=== PATIENT | male | born 1950 | race Caucasian/White ===

== ENCOUNTER 2017-08-25 11:43 | Observation (INO) | payer OTHER ==
[2017-08-25 12:17] LABS: #Eosinphils 0.2 thou/uL (0.0-0.7); #Lymphocytes 2.4 thou/uL (1.20-3.40); #Monocytes 0.5 thou/uL (0.11-0.59); #Neutrophils 3.1 thou/uL (1.40-6.50); %Basophils 0.6 % (0.0-1.0); %Eosinophils 3.2 % (0.0-10.0); %Lymphocytes 38.8 % (21.0-51.0); %Monocytes 7.4 % (0.0-10.0); Hematocrit 41.5 % (42.0-52.0); Mean Platelet Volume 7.7 fL (7.4-10.4); Red Blood Cell (RBC) Count 4.71 mill/uL (4.70-6.10); White Blood Cell (WBC) Count 6.2 thou/uL (4.8-10.8)
[2017-08-25 12:29] LABS: Fibrinogen 274 mg/dL (253-463)
[2017-08-25 12:30] LABS: PTT 40.4 SEC (22.9-36.1); Prothrombin Time 26.3 SEC (12.0-14.7)
[2017-08-25 12:37] LABS: ALT (SGPT) 23 U/L (8-55); AST (SGOT) 19 U/L (5-34); Alkaline Phosphatase 60 U/L (40-150); Anion Gap 14 mmol/L (10-20); BUN (Urea Nitrogen) 12 mg/dL (8.4-25.7); Bilirubin, Total 0.9 mg/dL (0.2-1.2); Calc. Creatinine Clearance 0 mL/min (70-130); Calcium 9.1 mg/dL (7.8-10.44); Carbon Dioxide 23 mmol/L (23-31); Chloride 108 mmol/L (98-107); Estimated GFR-MDRD 79; Globulin 2.9 g/dL (2.4-3.5)
[2017-08-25] MEDS ORDERED: Bisacodyl 5 MG TAB PO PRN (15:12)
[2017-08-25] MEDS ORDERED: Acetaminophen 325 MG TAB PO PRN (15:12)
--- NOTE | 2017-08-25 15:58 | PDOC.EVN ---
Event Note - Event Note Event Note: Discussed with [facility]. No need to reverse warfarin , per discussion.
[2017-08-25] MEDS ORDERED: Sodium Chloride 0.9% 1,000 ML IV SCH (16:00)
--- NOTE | 2017-08-25 16:01 | HP ---
PRIMARY CARE PHYSICIAN: Fabrice Miller D.O. CHIEF COMPLAINT: Snake bite. HISTORY OF PRESENT ILLNESS: Mr. Jackson is a pleasant 67-year-old gentleman, who was seen at [facility] on 08/25/2017. He was walking outside barefoot at 10:40 a.m. today, whe n he was bit by a copperhead snake on his right foot. He reports identifying the snake. He reports pain to the right foot. He also reports right foot swelling. He denies any chest pain or shortnes s of breath. He denies any nausea or vomiting. He denies any fevers or chills. He reports that his pain is currently 4/10, dull, radiating up his right lower extremity, no aggrava ting or relieving factors. REVIEW OF SYSTEMS: The following complete review of systems was negative, unless otherwise mentione d in the HPI or below: Constitutional: Weight loss or gain, sense of well-being, ability to conduct usual activities, exer cise tolerance. Skin/Breast: Rash, itching, changes in hair growth or loss, nail changes, breast lumps, tenderness, swelling, nipple discharge. Eyes: Vision, double vision, tearing, blind spots, pain. ENT/Mouth: Headaches (location, time of onset, duration, precipitating factors), vertigo, lighthead edness, injury. Vision, double vision, tearing, blind spots, pain, nose bleeding, colds, obstruction , discharge, dental difficulties, gingival bleeding, dentures, neck stiffness, pain, tenderness, mas ses in thyroid or other areas. Cardiovascular: Precordial pain, substernal distress, palpitations, syncope, dyspnea on exertion, o rthopnea, nocturnal paroxysmal dyspnea, edema, cyanosis, hypertension, heart murmurs, varicosities, phlebitis, claudication. Respiratory: Pain, shortness of breath, wheezing, stridor, cough, hemoptysis, fever or night sweats . Gastrointestinal: Poor appetite, dysphagia, indigestion, abdominal pain, heartburn, eructation, islvia sea, vomiting, hematemesis, jaundice, constipation, or diarrhea, abnormal stools (marilia-colored, herman y, bloody, greasy, foul smelling), flatulence, hemorrhoids, recent changes in bowel habits. Genitourinary: Urgency, frequency, dysuria, nocturia, hematuria, polyuria, oliguria, unusual (or ch cata in) color of urine, stones, hesitancy, change in size of stream, dribbling, acute retention or incontinence, libido, potency. Musculoskeletal: Pain, swelling, redness or heat of muscles or joints, limitation, of motion, muscu lar weakness, atrophy, cramps. Neurologic/Psychiatric: Convulsions, paralyses, tremor, incoordination, paresthesias, difficulties with memory of speech, sensory or motor disturbances, or muscular coordination (ataxia, tremor), emo tional problems, anxiety, depression, previous psychiatric care, unusual perceptions, hallucinations . Allergy/Immunologic: Skin rash, anemia, bleeding tendency, polydipsia, polyuria, intolerance to hea t or cold. PAST MEDICAL HISTORY: Significant for dyslipidemia, prostate cancer, status post radiation therapy, depression, shingles, superior mesenteric vein thrombosis, and colonic polyp. PAST SURGICAL HISTORY: Significant for cholecystectomy, tonsillectomy, and laparoscopic right hemic olectomy. SOCIAL HISTORY: The patient denies tobacco use, alcohol use or recreational drug use. CODE STATUS: I discussed Mr. Jackson's code status. He is FULL CODE. ALLERGIES: EPINEPHRINE. CURRENT MEDICATIONS: Include multivitamins 1 tablet daily, Crestor 20 mg daily, venlafaxine 75 mg d y, bicalutamide 50 mg daily, warfarin 10 mg daily except on Wednesdays and Saturdays, when he miky es 5 mg, tamsulosin 0.4 mg daily, calcium 600/vitamin D 1 tablet daily, vitamin C 500 mg daily. PHYSICAL EXAMINATION: GENERAL: Mr. Rodrigues is awake and alert, not in acute distress. VITAL SIGNS: Blood pressure is 149/79, pulse is 68. He is breathing at rate of 15 and saturating 9 9% on room air. He is afebrile. EYES: No scleral icterus. No conjunctival pallor. ENT: Moist mucosal membranes, no oropharyngeal erythema or exudates. NECK: Supple, nontender, normal range of movement. Trachea is midline. RESPIRATORY: Accessory muscles of breathing are not active. Chest wall movements are symmetric vik aterally. LUNGS: Clear to auscultation without wheeze, rhonchi or crepitations. CARDIOVASCULAR: S1 and S2 are heard, regular. LUNGS: Peripheral pulses palpable. No carotid bruit, no pericardial rub. ABDOMEN: Soft, nontender, bowel sounds heard, no hepatomegaly, no splenomegaly. NEUROLOGIC: Cranial nerves II-XII are intact. Deep tendon reflexes are 2+. MUSCULOSKELETAL: Power is 5/5 in all 4 extremities. Right lower extremity has two firing goldstein ove r the medial aspect of the foot, with swelling extending to mid leg. He also has increased warmth o addy the area of swelling, when compared to the left foot. Pulses are palpable but vary intensity th an on the left foot. He also has mild tenderness over the right foot, ankle and lower leg. His swe lling has been marked and appears to have progressed since presentation to the emergency room. SKIN: Skin changes in the right lower extremity as described above. Otherwise, no rashes or subcut aneous nodules. PSYCHIATRIC: Normal mood, normal affect, the patient is oriented to time, place and person. LYMPHATIC: No cervical lymphadenopathy. LABS AND INVESTIGATIONS: Mr. Tinoco labs and investigations were reviewed. He has normal white count, normocytic anemia with hemoglobin 13.9, normal platelet count, elevated PT of 26.3, elevated INR of 2.3, elevated PTT of 40.4, normal fibrinogen and normal fibrin degradation products, unremar kable comprehensive metabolic profile. CK has not been checked it. ASSESSMENT AND PLAN: Mr. Jackson is a pleasant 67-year-old gentleman, who was seen at [facility] on 08/25/2017. His problem list includes: 1. Snake bite: He had total at envenomation. Going by progression of leg swelling, he had moderat e envenomation. He will be started on antivenom. I discussed the side effects of antivenom, includ ing anaphylactic shock and even . The patient and family are agreeable for antivenom. He will be admitted to the hospital and have his labs rechecked. Orthopedic Service will also be consulted for evaluation for compartment syndrome. 2. Coagulopathy: His INR abnormalities are most likely secondary to warfarin use. We will hold wa rfarin for now. 3. Dyslipidemia: Continue statin. 4. History of prostate cancer. Continue bicalutamide. Many thanks for allowing me to participate in your patient's care. Please feel free to contact me w ith any questions or concerns. LEVEL OF RISK: Moderate. LEVEL OF COMPLEXITY: Moderate.
[2017-08-25] MEDS ORDERED: Ondansetron HCl/PF 4 MG/2 ML Vial IVP PRN (16:30)
[2017-08-25] MEDS ORDERED: Acetaminophen 500 MG TAB PO PRN (16:30)
[2017-08-25] MEDS ORDERED: HOLD ALL ANTI-COAGULANTS/ANTI-PLATELETS/NSAIDS PO SCH (16:30)
[2017-08-25] MEDS ORDERED: Crotalidae Polyvlnt Antivenin 4 GM in Sodium Chloride 0.9% 250 ML 250 ML IVPB SCH ×2 (16:30→23:59)
[2017-08-25] MEDS ORDERED: TETANUS AND DIPHTHERIA TOX/PF 0.5 ML DISP.SYRIN IM ONE (16:30)
[2017-08-25] MEDS ORDERED: diphenhydrAMINE HCl 50 MG/ML 1 ML VIAL IVP PRN (16:30)
[2017-08-25 16:46] VITALS: BMI 30.1
[2017-08-25] MEDS ORDERED: FLU VACC TS2017-18 (>65YR) 0.5 ML SYRINGE IM ONE (17:30)
[2017-08-25 20:00] LABS: PTT 39.5 SEC (22.9-36.1); Prothrombin Time 28.6 SEC (12.0-14.7)
[2017-08-25] MEDS ORDERED: Tamsulosin HCl 0.4 MG CAP PO SCH (21:00)
[2017-08-25] MEDS ORDERED: Multivit, Therapeutic 1 TAB PO SCH (21:00)
[2017-08-25] MEDS ORDERED: Calcium Carbonate 600 MG TAB PO SCH (21:00)
[2017-08-25] MEDS ORDERED: Venlafaxine HCl XR 75 MG CAP PO SCH (21:00)
[2017-08-25] MEDS ORDERED: Bicalutamide 50 MG TAB PO SCH (21:00)
[2017-08-25] MEDS ORDERED: Ascorbic Acid 500 mg Chewable Tablet PO SCH (21:00)
[2017-08-26] MEDS: Crotalidae Polyvlnt Antivenin 2 GM in Sodium Chloride 0.9% 250 ML 250 ML IVPB SCH ×3 (00:04→12:45)
[2017-08-26 04:35] LABS: #Eosinphils 0.2 thou/uL (0.0-0.7); #Monocytes 0.6 thou/uL (0.11-0.59); #Neutrophils 5.4 thou/uL (1.40-6.50); %Basophils 0.2 % (0.0-1.0); %Eosinophils 2.5 % (0.0-10.0); %Lymphocytes 24.4 % (21.0-51.0); %Monocytes 7.3 % (0.0-10.0); Hematocrit 39.3 % (42.0-52.0); Mean Platelet Volume 8.2 fL (7.4-10.4); Red Blood Cell (RBC) Count 4.42 mill/uL (4.70-6.10); White Blood Cell (WBC) Count 8.3 thou/uL (4.8-10.8)
[2017-08-26 04:38] LABS: Anion Gap 11 mmol/L (10-20); BUN (Urea Nitrogen) 13 mg/dL (8.4-25.7); CK (CPK) 211 U/L (30-200); Calc. Creatinine Clearance 95 mL/min (70-130); Calcium 8.9 mg/dL (7.8-10.44); Carbon Dioxide 24 mmol/L (23-31); Chloride 107 mmol/L (98-107); Estimated GFR-MDRD 78
[2017-08-26 09:37] VITALS: BP 122/71; TEMP 98.3
--- NOTE | 2017-08-26 14:06 | CON ---
ORTHOPEDIC CONSULTATION DATE OF CONSULTATION: 08/26/2017 REQUESTING PHYSICIAN: Dr. Trevor Coronel. CONSULTING PHYSICIAN: Dr. Ronnell Rosales. REASON FOR CONSULTATION: Right foot crotalid envenomation. BRIEF CLINICAL HISTORY OF PRESENT ILLNESS: [place] is a 67-year-old white male who was admitted to edicine Service yesterday after he was bitten by a copperhead snake at home. He was walking outside without shoes on about 10:00 a.m. and stepped on the snake and he identified it. He was brought to the [facility] and he was started on the CroFab protocol. Since yesterday e vening, his pain has been getting better. He has not received any analgesics for this. Overall, he feels fine now and his swelling is noted, but other than that he admits to very little pain. PAST MEDICAL HISTORY: Significant for hyperlipidemia, depression, superior mesenteric vein thrombos is, shingles. PAST SURGICAL HISTORY: Cholecystectomy, tonsillectomy, hemicolectomy. PHYSICAL EXAMINATION: MUSCULOSKELETAL: Visual inspection of the right lower extremity demonstrates him to have +1 edema n oted on the dorsum of the foot, midfoot and hind foot, extending up circumferentially around the ank le and involving the leg. SKIN: Tight and tense, but he has full digital excursion, full ankle range of motion to include sara ntar flexion, dorsiflexion, inversion, eversion. There is no tenderness to palpation and envenomati on site is not clearly noted on the medial midfoot and there is no gross erythema, a little bit of b ruising is appreciated. IMPRESSION: 1. Right foot crotalid envenomation. 2. No evidence of compartment syndrome to include the foot or leg. PLAN: 1. The patient is stable for discharge from an orthopedic standpoint. 2. Continue treatment per Medicine.
--- NOTE | 2017-08-26 20:31 | DIS ---
PRIMARY CARE PHYSICIAN: Fabrice Miller D.O. DATE OF ADMISSION: 08/25/2017 DATE OF DISCHARGE: 08/26/2017 DISCHARGE DIAGNOSIS: Crotalid envenomation. CONDITION OF PATIENT AT THE TIME OF DISCHARGE: Stable. I assessed Mr. Jackson on the day of discha rge. He denies any chest pain or shortness of breath. Vital signs are stable. S1 and S2 are heard , regular. Lungs were clear to auscultation bilaterally. The swelling from the snake bite is subsi ding. DISCHARGE MEDICATIONS: No changes were made to his home medications as described on history and phy sical note from 06/25/2017. HOSPITAL COURSE: Mr. Jackson is a pleasant 67-year-old gentleman who was admitted to [facility] following copperhead bite to his right foot. Clinically, it was deemed to be a moderate degree of envenomation. He was started on CroFab protocol. He received 3 doses. He was a lso assessed by Orthopedic Service and compartment syndrome was ruled out. He improved clinically a nd is being discharged home in a stable condition. On the day of discharge, Mr. Jackson has normal electrolytes, normal creatinine, CK decreased to 211 from 310 at the time of admission, white count 8300, hemoglobin 13.3, platelet count 222,000, INR 2 .6, PT 28.6, PTT 39.5 and fibrinogen 261. He had normal fibrin degradation products during this hos pitalization. D-dimer was less than 0.27. Many thanks for allowing me to participate in your patient's care. Please feel free to contact me w ith any questions or concerns. DISCHARGE DESTINATION: Home.
== END 2017-08-26 16:16 | disposition home or self-care (01) ==
LOC: ERS 11:43 → 2SW 16:05
PROVIDERS: ADMIT Internal Medicine; ATTEND Internal Medicine
DX: T63.091A Toxic effect of venom of other snake, accidental (unintentional), initial encounter (principal); E78.5 Hyperlipidemia, unspecified; Z88.8 Allergy status to other drugs, medicaments and biological substances; Z79.899 Other long term (current) drug therapy; Z90.49 Acquired absence of other specified parts of digestive tract; Z90.89 Acquired absence of other organs; Z87.19 Personal history of other diseases of the digestive system; Z85.46 Personal history of malignant neoplasm of prostate; Z92.3 Personal history of irradiation
CPT/HCPCS: 36415; 80048; 80053; 82550; 85025; 85049; 85300; 85362; 85379; 85384; 85610; 85730; 90471; 90682; 96361; 96365; 96366; 96374; 96375; 96376; G0008; G0378; J0840; J2270; J7050; Q2036

== ENCOUNTER 2017-12-17 08:21 | Outpatient (CLI) | payer OTHER ==
--- NOTE | 2017-12-17 09:58 | CT ---
CT OF FACE WITH CONTRAST: History: Mass (Lipoma versus lymph node). FINDINGS: A right preauricular mass measuring 16 mm AP x 12 mm transverse is present. This is in the region of palpable concern. Finding is well circumscribed and is situated within the subcutaneous fat. There is no discrete cervical chain adenopathy. The submandibular glands and parotid glands are unrem arkable. The carotid arteries are medially deviated with a retropharyngeal course bilaterally. IMPRESSION: Circumscribed hypodense mass of the subcutaneous tissues of the right preauricular region. Primary co nsiderations would include a sebaceous cyst or alternatively, pathologically enlarged lymph node. Thi s would amendable to FNA for further sampling if clinically necessary. POS: ARTIE
== END 2017-12-17 08:22 | disposition home or self-care (01) ==
LOC: CT 08:21
PROVIDERS: ATTEND Otolaryngology Otolaryngic Allergy
DX: D49.2 Neoplasm of unspecified behavior of bone, soft tissue, and skin (principal); R22.0 Localized swelling, mass and lump, head
CPT/HCPCS: 70487

== ENCOUNTER 2018-08-12 12:17 | Outpatient (CLI) | payer MEDICARE, OTHER ==
--- NOTE | 2018-08-12 14:59 | CT ---
CT ANGIO ABDOMEN PERFORMED WITH AND WITHOUT CONTRAST ENHANCEMENT WITH 3D RECONSTRUCTIONS: Date: 08/12/18 HISTORY: Patient has a history of right hemicolectomy related to a large poly, a history of prostate cancer, a nd a history of a SMV thrombus. COMPARISON: 08/27/15 exam. FINDINGS: The lung bases show no focal infiltrative process or signs of pulmonary nodules. The liver, spleen, and pancreas regions appear unremarkable on this angiographic phase exam. Gallblad philip has been removed. Right and left adrenal glands are normal in appearance. A hypodensity involving the upper pole of the left kidney is stable in size, most likely a small cyst. No obstruction. No significant periaortic or mesenteric adenopathy. Angiographic portion of this study shows a normal caliber aorta. There is a mild to moderate narrowin g near the origin of the celiac artery. There is slight poststenotic dilatation present. No significa nt stenosis of the superior mesenteric artery. There are single renal arteries bilaterally. No signif icant stenosis identified. There is an WIN present. No bowel dilatation or other bowel wall abnormali ties. Right hemicolectomy is seen. CT ANGIO PELVIS PERFORMED WITH AND WITHOUT CONTRAST ENHANCEMENT: No evidence of adenopathy, mass, or free fluid. IMPRESSION: 1. Postop cholecystectomy change and right hemicolectomy change. 2. 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 No significant stenosis of the s uperior mesenteric artery. No mesenteric fat stranding or other findings. POS: [facility]
== END 2018-08-12 12:18 | disposition home or self-care (01) ==
LOC: BICCT 12:17
PROVIDERS: ATTEND Internal Medicine Gastroenterology
DX: R10.31 Right lower quadrant pain (principal); R14.0 Abdominal distension (gaseous); Z90.49 Acquired absence of other specified parts of digestive tract; I77.1 Stricture of artery
CPT/HCPCS: 74174; 82565

== ENCOUNTER 2018-12-09 15:30 | Emergency (ER) | payer MEDICARE, OTHER ==
[2018-12-09 16:52] LABS: #Basophils 0.1 thou/uL (0.0-0.2); #Eosinphils 0.2 thou/uL (0.0-0.7); #Lymphocytes 1.9 thou/uL (1.20-3.40); #Monocytes 0.5 thou/uL (0.11-0.59); #Neutrophils 4.1 thou/uL (1.40-6.50); %Basophils 0.7 % (0.0-1.0); %Eosinophils 3.5 % (0.0-10.0); %Lymphocytes 27.9 % (21.0-51.0); %Monocytes 7.9 % (0.0-10.0); %Neutrophils 59.9 % (42.0-75.0); Mean Corpuscular HGB CONC 32.5 g/dL (32.0-36.0); Mean Corpuscular Hemoglobin 27.6 pg (27.0-31.0); Mean Corpuscular Volume 85.1 fL (78.0-98.0); Mean Platelet Volume 8.2 fL (7.4-10.4); Platelet Count 248 thou/uL (130-400); RBC Distribution Width 14.4 % (11.5-14.5); White Blood Cell (WBC) Count 6.8 thou/uL (4.8-10.8)
[2018-12-09 16:56] LABS: INR-International Normal Ratio 2.5; PTT 39.4 SEC (22.9-36.1)
[2018-12-09 17:09] LABS: ALT (SGPT) 31 U/L (8-55); AST (SGOT) 24 U/L (5-34); Albumin 4.4 g/dL (3.4-4.8); Alkaline Phosphatase 60 U/L (40-150); Anion Gap 14 mmol/L (10-20); BUN (Urea Nitrogen) 17 mg/dL (8.4-25.7); Bilirubin, Total 0.9 mg/dL (0.2-1.2); CK (CPK) 633 U/L (30-200); Calc. Creatinine Clearance 0 mL/min (70-130); Calcium 9.4 mg/dL (7.8-10.44); Carbon Dioxide 22 mmol/L (23-31); Chloride 104 mmol/L (98-107); Estimated GFR-MDRD 70; Glucose 113 mg/dL (80-115); Lipase 39 U/L (8-78); Potassium 4.2 mmol/L (3.5-5.1); Protein, Total 7.4 g/dL (5.8-8.1); Sodium 136 mmol/L (136-145)
--- NOTE | 2018-12-09 17:38 | CT ---
CT BRAIN 12/09/18 HISTORY: Fall. Noncontrast enhanced CT images brain obtained. The brain is unremarkable. No evidence of intracranial masses, hemorrhages, or strokes or contusions seen. Ventricles are of normal size. No evidence of sub or epidural hematoma seen. IMPRESSION: Normal CT brain. POS: [facility]
--- NOTE | 2018-12-09 17:42 | RAD ---
CHEST ONE VIEW 12/09/18 at 4:48 p.m. HISTORY: Syncope. FINDINGS: The heart size is normal. No focal areas of consolidation, pneumothoraces, or pleural effusion are se en. There are degenerative changes in the spine. IMPRESSION: No acute process. POS: OFF
[2018-12-09] MEDS ORDERED: diphenhydrAMINE 50 MG/ML VIAL ONE (19:29)
[2018-12-09] MEDS ORDERED: Metoclopramide HCl 10 MG/2 ML VIAL ONE (19:29)
[2018-12-09] MEDS ORDERED: Meclizine HCl 25 MG TAB ONE (20:02)
== END 2018-12-09 21:11 | disposition home or self-care (01) ==
LOC: ERS 15:30
DX: R42 Dizziness and giddiness (principal); E78.5 Hyperlipidemia, unspecified; F32.9 Major depressive disorder, single episode, unspecified; Z79.899 Other long term (current) drug therapy; Z79.51 Long term (current) use of inhaled steroids
CPT/HCPCS: 36415; 70450; 71045; 80053; 82550; 83690; 84484; 85025; 85610; 85730; 93005; 96365; 96375; J1200; J2765